=== PATIENT | female | born 1985 | race Caucasian/White ===

== ENCOUNTER 2024-01-17 17:55 | Inpatient (IN) | payer BC ==
[~2024-01-17] VITALS: Ht 167.6 cm; Wt 69.4 kg
[2024-01-17] MEDS ORDERED: mag hydrox/Alum hydrox/simeth 30ml oral suspension PO PRN (21:30)
[2024-01-17] MEDS ORDERED: acetaminophen 325mg tablet PO PRN (21:30)
[2024-01-17] MEDS ORDERED: loperamide 2mg capsule PO PRN (21:30)
[2024-01-17 23:20] VITALS: BP 130/86; PULSE 111; RESP 16; TEMP 97.4; O2SAT 98
[2024-01-17 23:26] VITALS: RESP 16; O2SAT 98
[2024-01-18 07:00] VITALS: RESP 16; O2SAT 100
[2024-01-18 08:00] VITALS: BP 118/65; PULSE 87; RESP 16; TEMP 97.9; O2SAT 97
[2024-01-18 08:38] LABS: CHOL/HDL RATIO 2.6 (0.00-4.99); CHOLESTEROL 128 MG/DL (0-200); HDL CHOLESTEROL 50 MG/DL (35-60); LDL CHOLESTEROL 71 MG/DL (50-100); TRIGLYCERIDES 63 MG/DL (20-135)
[2024-01-18 08:49] LABS: HEMOGLOBIN A1C 5.1 % (4.5-6.2)
[2024-01-18] MEDS: lisdexamfetamine dimesylate 10mg capsule PO ONE (15:02)
[2024-01-18] MEDS: sertraline 50mg tablet PO ONE (15:03)
[2024-01-18] MEDS: acetaminophen 325mg tablet PO PRN (15:04)
[2024-01-18 17:09] LABS: FREE T4 (FREE THYROXINE) 1.07 NG/DL (0.73-1.40); THYROID STIMULATING HORMONE 0.88 ulU/ml (0.34-4.50)
[2024-01-18 19:00] VITALS: BP 136/75; PULSE 94; RESP 16; TEMP 98.1; O2SAT 93; O2SAT 96
[2024-01-18] MEDS: prazosin 1mg capsule PO SCH (20:40)
[2024-01-18] MEDS: magnesium hydroxide 30ml (MOM) UD suspension PO PRN (21:01)
[2024-01-19] MEDS: LORazepam 1 MG tablet PO ONE (06:00)
[2024-01-19] MEDS: ondansetron 4mg rapidly disintigrating tab PO ONE (06:01)
[2024-01-19 06:15] VITALS: BP 124/82; PULSE 99; RESP 16; TEMP 97.3; O2SAT 100
[2024-01-19 07:00] VITALS: RESP 14; O2SAT 97
[2024-01-19 08:00] VITALS: BP 121/80; PULSE 75; RESP 14; TEMP 97.3; O2SAT 97
[2024-01-19] MEDS ORDERED: lisdexamfetamine dimesylate 10mg capsule PO SCH (08:00)
[2024-01-19] MEDS: sertraline 50mg tablet PO SCH (08:49)
[2024-01-19] MEDS: lisdexamfetamine dimesylate 10mg capsule PO SCH (08:49)
[2024-01-19 19:00] VITALS: BP 121/77; PULSE 88; RESP 16; TEMP 98.9; O2SAT 97
[2024-01-19] MEDS: Melatonin 3mg tablet PO SCH (21:17)
[2024-01-20 07:00] VITALS: RESP 15; O2SAT 98
[2024-01-20 08:00] VITALS: BP 109/70; PULSE 91; RESP 16; TEMP 97.2; O2SAT 98
[2024-01-20 13:31] LABS: BASOPHILS % (AUTO) 0.3 % (0-1); EOSINOPHILS # (AUTO) 0.1 X10'3 (0-0.9); EOSINOPHILS % (AUTO) 0.5 % (0-6); HEMATOCRIT 39.8 % (35.0-45.0); HEMOGLOBIN 13.5 g/dl (12.0-16.0); LYMPHOCYTES # (AUTO) 2.9 X10'3 (1.1-4.8); LYMPHOCYTES % (AUTO) 30.6 % (21-51); MEAN CORPUSCULAR HEMOGLOBIN 29.8 PG (27.0-31.0); MEAN CORPUSCULAR HGB CONC 33.9 g/dL (33.0-36.5); MEAN CORPUSCULAR VOLUME 88.1 FL (78-98); MEAN PLATELET VOLUME 8.3 FL (7.4-10.4); MONOCYTES # (AUTO) 0.5 X10'3 (0-0.9); MONOCYTES % (AUTO) 5.2 % (2-12); NEUTROPHILS % (AUTO) 63.4 % (42-75); PLATELET COUNT 295 X10'3 (140-440); RED BLOOD COUNT 4.52 X10'6 (4.20-5.60); RED CELL DISTRIBUTION WIDTH 12.8 % (11.5-14.5); WHITE BLOOD COUNT 9.4 X10'3 (4.5-11.0)
[2024-01-20 13:36] LABS: ALANINE AMINOTRANSFERASE 22 U/L (12-78); ALBUMIN 4.1 G/DL (3.4-5.0); ALBUMIN/GLOBULIN RATIO 1.2 (1.1-1.5); ALKALINE PHOSPHATASE 68 IU/L (46-116); ANION GAP 6 (8-16); ASPARTATE AMINO TRANSFERASE 15 U/L (10-37); BILIRUBIN,TOTAL 0.6 MG/DL (0.1-1.0); BLOOD UREA NITROGEN 8 MG/DL (7-18); BUN/CREATININE RATIO 8.9 (10.0-20.0); CALCIUM 8.9 MG/DL (8.5-10.1); CHLORIDE 104 MMOL/L (99-107); GLUCOSE 133 MG/DL (70-104); POTASSIUM 4.4 MMOL/L (3.5-5.1); SODIUM 138 MMOL/L (135-145); TOTAL CARBON DIOXIDE 28.1 MMOL/L (24-32); TOTAL PROTEIN 7.4 G/DL (6.4-8.2); eCRCL 81 ML/MIN; eGFR 71 ML/MIN
[2024-01-20 19:00] VITALS: RESP 16; O2SAT 97
[2024-01-20 20:00] VITALS: BP 117/76; PULSE 107; RESP 16; TEMP 98.3
[2024-01-21] MEDS: hydrOXYzine 25 MG tablet PO PRN (03:45)
[2024-01-21 07:00] VITALS: RESP 15; O2SAT 98
[2024-01-21 08:49] VITALS: BP 97/56; PULSE 59; RESP 14; TEMP 98.1; O2SAT 94
[2024-01-21 20:00] VITALS: BP 129/71; PULSE 124; RESP 16; TEMP 97.8; O2SAT 95
[2024-01-22 07:00] VITALS: BP 108/60; PULSE 88; RESP 16; TEMP 97.9; O2SAT 98
[2024-01-22] MEDS ORDERED: SERT-433 PO (13:14)
[2024-01-22] MEDS ORDERED: HYDR-3686 PO (13:14)
[2024-01-22] MEDS ORDERED: PRAZ1CAP5 PO (13:14)
[2024-01-22] MEDS ORDERED: MELA3TAB39 PO (13:14)
[2024-01-22] MEDS ORDERED: LISD10CA PO (13:14)
[2024-01-22] MEDS ORDERED: LISD30CA2 PO (16:15)
[2024-01-23] MEDS ORDERED: MELA1TAB28 PO (02:14)
[2024-01-23] MEDS ORDERED: PRAZ2CAP2 PO (02:14)
[2024-01-23] MEDS ORDERED: HYDR-3686 PO ×2 (02:14→16:44)
[2024-01-23] MEDS ORDERED: SERT25TA PO (02:14)
[2024-01-23] MEDS ORDERED: LISD30CA2 PO (02:14)
[2024-01-23] MEDS ORDERED: PRAZ1CAP5 PO (16:44)
[2024-01-23] MEDS ORDERED: SERT50TA PO (16:45)
== END 2024-01-22 15:15 | disposition home or self-care (01) | DRG 885 ==
LOC: ADULT MH 21:11
PROVIDERS: ADMIT Psychiatry & Neurology Psychiatry; ATTEND Psychiatry & Neurology Psychiatry
DX: F33.9 Major depressive disorder, recurrent, unspecified (principal); F23 Brief psychotic disorder; E06.3 Autoimmune thyroiditis; F90.9 Attention-deficit hyperactivity disorder, unspecified type; F41.9 Anxiety disorder, unspecified; J45.909 Unspecified asthma, uncomplicated; M19.012 Primary osteoarthritis, left shoulder; Z62.810 Personal history of physical and sexual abuse in childhood; Z80.0 Family history of malignant neoplasm of digestive organs; Z80.3 Family history of malignant neoplasm of breast; Z80.41 Family history of malignant neoplasm of ovary; Z91.011 Allergy to milk products
CPT/HCPCS: 36415; 80053; 80061; 83036; 84439; 84443; 85025; 87081; 99285; Q0177